=== PATIENT | female | born 1985 | race Caucasian/White ===

== ENCOUNTER 2025-01-25 13:23 | Outpatient (CLI) | payer OTHER, SELFPAY | END 2025-01-25 13:24 | disposition home or self-care (01) | PROVIDERS: PCP Family Medicine; Visit Provider Family Medicine | DX: Z00.00 Encounter for general adult medical examination without abnormal findings (principal); E78.5 Hyperlipidemia, unspecified; Z86.2 Personal history of diseases of the blood and blood-forming organs and certain disorders involving the immune mechanism; Z86.39 Personal history of other endocrine, nutritional and metabolic disease; Z11.59 Encounter for screening for other viral diseases | CPT/HCPCS: 80053; 80061; 82306; 82607; 82746; 84443; 86803 ==